=== PATIENT | female | born 1940 | race Caucasian/White ===

== ENCOUNTER 2019-02-25 16:28 | Inpatient (IN) | payer MEDICARE ==
[~2019-02-25] VITALS: Ht 162.6 cm; Wt 60.0 kg
--- NOTE | ~2019-02-25 | EKG ---
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
--- NOTE | ~2019-02-25 | EKG ---
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
--- NOTE | ~2019-02-25 | ST ---
[place], [place] EXERCISE STRESS TEST REPORT [id number] UN[facility] #: [id number] ROOM: 511 DOCTOR: POLLY JACKSON MD BIRTHDATE: [birth year] DOS: 02/27/2019 LEXISCAN STRESS EKG REFERRING PHYSICIAN: Dr. Neal. INDICATION: Abnormal EKG and palpitations. The patient underwent standard protocol Lexiscan stress EKG. Baseline rhythm is sinus bradycardia with a heart rate of 47 with a blood pressure 138/80. The patient's peak heart rate was 80 with a blood pressure 136/50. The patient had no EKG changes, no arrhythmias, no chest pain. SUMMARY OF FINDINGS: Unremarkable Lexiscan stress EKG. Please see separate report for perfusion scan imaging results. POLLY JACKSON MD CM:STRESS:EXERCISE STRESS TEST REPORT [id number] POLLY JACKSON MD
--- NOTE | ~2019-02-25 | EKG ---
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
[~2019-02-25 16:28] MED LIST: CIPROFLOXACIN500 MG PO; ZOFRAN4 MG PO
[2019-02-25 16:44] VITALS: BP 180/72
[2019-02-25 16:48] LABS: BASO # 0.1 10*3/uL (0.0-0.1); BASO % 0.5 % (0.0-1.0); EOS # 0.1 10*3/uL (0.0-0.4); EOS % 0.5 % (1.0-4.0); HEMOGLOBIN 12.8 g/dl (12.0-16.0); LYMPH # 2.5 10*3/uL (1.3-4.4); LYMPH % 21.4 % (27.0-41.0); MEAN CELL VOLUME 90.7 fl (81.0-99.0); MEAN CORPUSCULAR HGB 29.8 pg (27.0-31.0); MEAN CORPUSCULAR HGB CONC 32.8 g/dl (33.0-37.0); MEAN PLATELET VOLUME 10.3 fl (9.6-12.3); MONO # 0.6 10*3/uL (0.1-1.0); MONO % 5.2 % (3.0-9.0); NEUT # 8.4 10*3/uL (2.3-7.9); NEUT % 71.9 % (47.0-73.0); PLATELET COUNT AUTOMATED 218 10*3/uL (130-400); WHITE BLOOD COUNT 11.7 10*3/uL (4.8-10.8)
--- NOTE | 2019-02-25 16:58 | NUR ---
JAXON DRAKE SPOKE WITH INSIDE SALES RECRUITER WHO EVIEWED THE PTS EKG. THEY STATE THAT IT IS WORRISOME WITH THE ST DEPRESSION BUT THEY BELIEVE THAT THE PT COULD BE ADMITTED TO [facility]. JAXON DRAKE WILL LET THE INSIDE SALES RECRUITER KNOW IF THERE ARE ANY ABNORMAL FINDING ON THE REST OF THE PTS WORKUP.
[2019-02-25 17:01] LABS: ACT PARTIAL THROMBO TIME 24.5 SECONDS (20.0-32.1); INTERNATIONAL NORM RATIO 0.9 (2.0-3.5)
[2019-02-25 17:04] LABS: ALBUMIN 4.1 gm/dl (3.1-4.5); ALKALINE PHOSPHATASE 112 U/L (45-117); BUN 27 mg/dl (7-24); CHLORIDE 101 mmol/L (98-107); CREATININE 1.25 mg/dL (0.55-1.02); POTASSIUM 3.4 mmol/L (3.5-5.1); SGOT/AST 17 IU/L (3-35); SGPT/ALT 25 U/L (12-78); SODIUM 137 mmol/L (136-145)
[2019-02-25 17:07] LABS: TROPONIN I < 0.015 ng/ml (<0.045)
[2019-02-25 18:22] VITALS: BP 178/46
[2019-02-25 18:36] LABS: BILIRUBIN NEGATIVE (NEGATIVE); BLOOD TRACE-INTACT (NEGATIVE); CLARITY SL CLOUDY (CLEAR); COLOR YELLOW (YELLOW); GLUCOSE NEGATIVE (NEGATIVE); KETONE NEGATIVE (NEGATIVE); LEUKO ESTERASE 3+ (NEGATIVE); NITRITE POSITIVE (NEGATIVE); SPECIFIC GRAVITY <= 1.005 (1.005-1.030)
[2019-02-25 18:44] LABS: EPITHELIAL CELLS 0-2; RBC 0-2 rbc/hpf (0-2); WBC TNTC wbc/hpf (0-5)
[2019-02-25 18:45] LABS: BACTERIA 2+
--- NOTE | 2019-02-25 19:05 | NUR ---
NURSE TO NURSE REPORT GIVEN TO THIS RN FROM [facility].
[2019-02-25 20:37] VITALS: BP 158/59
[2019-02-25 20:50] VITALS: BP 166/58
--- NOTE | 2019-02-25 20:50 | NUR ---
A 78, admitted to 5E, under the services of AIME Madison DO with a diagnosis of UTI. Chief complaint is TACHYCARDIA. Patient arrived via bed from ER. Monitor applied. Initial assessment completed. Vital signs taken and recorded. AIME MADIOSN DO notified of admission to the unit. Orders received. See assessment for past medical history, medications and allergies. Patient and/or family oriented to unit. [address] visitation policy reviewed. Clothing/patient valuable form completed. NO WOUNDS ON ADMISSION. SKIN WDI. FLU VACCINE TO BE ADMINISTERED. CRISTY FERGUSON
[2019-02-25] MEDS ORDERED: LIPITOR80 MG PO (22:56)
[2019-02-25] MEDS ORDERED: TOPROL XL100 MG PO (22:56)
[2019-02-25] MEDS ORDERED: VITAMIN D400 UNI1 PO (22:58)
[2019-02-25] MEDS ORDERED: ASPIRIN ADULT L81 M1 PO (22:58)
[2019-02-25] MEDS ORDERED: FOSINOPRIL SODI20 MG PO (22:58)
[2019-02-25] MEDS ORDERED: LEVOTHYROXINE50 MCG PO (23:00)
--- NOTE | 2019-02-25 23:11 | NUR ---
DR MILLER NOTIFIED OF UPDATED MED REC.
[2019-02-26] VITALS: BP 159/51
--- NOTE | 2019-02-26 06:42 | NUR ---
SPOKE WITH KVNG FROM ANSWERING SERVICE. NEW PT CONSULT FOR DR ESPAÑA MADE.
[2019-02-26 06:44] LABS: BASO # 0.1 10*3/uL (0.0-0.1); BASO % 0.8 % (0.0-1.0); EOS # 0.1 10*3/uL (0.0-0.4); HEMATOCRIT 34.7 % (37.0-47.0); HEMOGLOBIN 11.2 g/dl (12.0-16.0); LYMPH # 1.9 10*3/uL (1.3-4.4); MEAN CORPUSCULAR HGB 29.7 pg (27.0-31.0); MEAN CORPUSCULAR HGB CONC 32.3 g/dl (33.0-37.0); MEAN PLATELET VOLUME 10.8 fl (9.6-12.3); MONO # 0.5 10*3/uL (0.1-1.0); MONO % 7.4 % (3.0-9.0); NEUT # 4.7 10*3/uL (2.3-7.9); NEUT % 64.4 % (47.0-73.0); PLATELET COUNT AUTOMATED 191 10*3/uL (130-400); RED BLOOD COUNT 3.77 10*6/uL (4.10-5.10); RED CELL DISTRI WIDTH 13.2 % (0-14.5); WHITE BLOOD COUNT 7.3 10*3/uL (4.8-10.8)
[2019-02-26 07:17] LABS: INTERNATIONAL NORM RATIO 0.9 (2.0-3.5)
[2019-02-26 07:20] LABS: ALBUMIN 3.4 gm/dl (3.1-4.5); BUN 24 mg/dl (7-24); CHLORIDE 110 mmol/L (98-107); SODIUM 141 mmol/L (136-145); TRIGLYCERIDES 265 mg/dl (<150); VLDL CHOLESTEROL 53 mg/dL (6-40)
[2019-02-26 07:26] LABS: ALKALINE PHOSPHATASE 89 U/L (45-117); CHOLESTEROL 165 mg/dL (<200); CREATININE 0.98 mg/dL (0.55-1.02); HDL CHOLESTEROL 50 mg/dl (40-60); LDL CHOLESTEROL 62 mg/dL (9-159); PHOSPHOROUS 3.5 mg/dL (2.5-4.9); SGOT/AST 10 IU/L (3-35); SGPT/ALT 19 U/L (12-78); TOTAL PROTEIN 6.6 gm/dL (6.4-8.2)
[2019-02-26 07:30] LABS: POTASSIUM 4.5 mmol/L (3.5-5.1)
--- NOTE | 2019-02-26 07:33 | NUR ---
24 HR chart check completed.
[2019-02-26 08:00] VITALS: BP 149/50; BP 158/60
[2019-02-26 08:13] LABS: VITAMIN D, 25-HYDROXY 24.5 ng/mL (30-100)
--- NOTE | 2019-02-26 08:30 | NUR ---
SITTING IN BED EATING, NO ACUTE DISTRESS NOTED. RESPIRATIONS EASY. LUNGS DIMINISHED, CLEAR. PULSE OX 96% RA. C/O URINARY FREQUENCY. OFFERED AND EDUCATED REGARDING TEDS, PRESENT AT BEDSIDE. CALL LIGHT WITHIN REACH. NO VOICED COMPLAINTS
--- NOTE | 2019-02-26 08:35 | NUR ---
DR HURT HERE TO ASSESS PATIENT AND DISCUSS PLAN OF CARE
--- NOTE | 2019-02-26 09:10 | NUR ---
dr marti here to see patient and discuss of care
[2019-02-26] MEDS ORDERED: METOPROLOL TAR100 M1 PO (09:48)
[2019-02-26 12:00] VITALS: BP 129/65
--- NOTE | 2019-02-26 12:00 | NUR ---
SITTING IN BED TALKING ON PHONE. NO DISTRESS NOTED. CALL LIGHT WITHIN REACH. NO VOICED COMPLAINTS
[2019-02-26 16:00] VITALS: BP 117/75
--- NOTE | 2019-02-26 18:00 | NUR ---
RESTING IN BED WITH NO DISTRESS NOTED. RESPIRATIONS EASY. CALL LIGHT WITHIN REACH. NO VOICED COMPLAINTS
[2019-02-26 20:00] VITALS: BP 147/54
--- NOTE | 2019-02-26 20:00 | NUR ---
24 HOUR CHART CHECK COMPLETE.
[2019-02-27] VITALS: BP 143/52
[2019-02-27 07:00] LABS: ALBUMIN 3.6 gm/dl (3.1-4.5); ALKALINE PHOSPHATASE 85 U/L (45-117); BUN 23 mg/dl (7-24); CHLORIDE 106 mmol/L (98-107); CREATININE 0.94 mg/dL (0.55-1.02); POTASSIUM 5.1 mmol/L (3.5-5.1); SGOT/AST 13 IU/L (3-35); SGPT/ALT 20 U/L (12-78); SODIUM 142 mmol/L (136-145); TOTAL PROTEIN 6.9 gm/dL (6.4-8.2)
[2019-02-27 07:11] LABS: BASO # 0.1 10*3/uL (0.0-0.1); BASO % 1.2 % (0.0-1.0); EOS # 0.2 10*3/uL (0.0-0.4); EOS % 2.1 % (1.0-4.0); HEMATOCRIT 36.9 % (37.0-47.0); HEMOGLOBIN 11.8 g/dl (12.0-16.0); LYMPH # 2.4 10*3/uL (1.3-4.4); LYMPH % 30.7 % (27.0-41.0); MEAN CELL VOLUME 92.5 fl (81.0-99.0); MEAN CORPUSCULAR HGB 29.6 pg (27.0-31.0); MEAN PLATELET VOLUME 10.2 fl (9.6-12.3); MONO # 0.6 10*3/uL (0.1-1.0); MONO % 7.8 % (3.0-9.0); NEUT # 4.5 10*3/uL (2.3-7.9); NEUT % 57.7 % (47.0-73.0); PLATELET COUNT AUTOMATED 204 10*3/uL (130-400); RED BLOOD COUNT 3.99 10*6/uL (4.10-5.10); RED CELL DISTRI WIDTH 13.2 % (0-14.5); WHITE BLOOD COUNT 7.8 10*3/uL (4.8-10.8)
[2019-02-27 08:00] VITALS: BP 105/77; BP 140/60
--- NOTE | 2019-02-27 08:59 | NUR ---
PRIMARY SPECIAL EDUCATION TEACHER spoke with the patient when having the patient sign her Medicare Rights form. Patient stated that she does have a good support system at home. However, she feels that her is getting to a point where he cannot take care of her horse race timer. The patient reported that she has two daugthers who help her when she calls them and grandsons who help with the outside yard work. She stated that she is interested in Home Health Nurses and Visiting Physicicans. The patient stated "If it wasn't for the EMS team, I wouldn't have left the house." Patient stated she does not like to leave her home anymore. NANCY provided the patient with brochures on [facility] and [facility]. NANCY will inform Calender Worker Helper. -NANCY Gonzáles
[2019-02-27 12:00] VITALS: BP 160/63
--- NOTE | 2019-02-27 12:17 | NUR ---
INFORMED SIGNED CONSENT OBTAINED FOR LEXISCAN STRESS TEST WITH DR JACKSON. RESTING EKG SINUS BRADYCARDIA INVERTED T WAVE -V2 AVL/AVR. HR 47 BP 138/80. PULSE OX 92% LUNGS CLEAR. PT COMPLETED ONE MINUTE OF A LEXISCAN PROTOCOL WITH PT RECEIVING LEXISCAN 0.4MG IV OVER 10 SECONDS. PAC'S NOTED. NO ST CHANGES SEEN. PT C/O OF ANXIETY AND RINGING IN HIS EARS. LAST RECOVERY HR OF 77 BP 120/66. PT IN STABLE CONDITION, AWAITING NUCLEAR IMAGES.
--- NOTE | 2019-02-27 14:20 | NUR ---
Matrix Repairer in to talk to patient. Patient states lives at HOME with ALONE. There are NO steps in the home. Physician: DAWNA Pharmacy: [facility] health services: NONE Patient's level of ADLs: INDEPENDENT Patient has working utilities: YES DME: NONE Follow-up physician's appointment after d/c: WILL BE MADE BY HOSPITALIST NURSE DIRECTOR ON DISCHARGE Does patient want to access PORTAL?: NO Discharge plan PT LIVES ALONE AT HOME, STATES SHE IS INDEPENDENT IN HER CARE.. PT DENIES ANY NEEDS AT DISCHARGE. STATES SHE WILL RETURN HOME WHEN MEDICALLY STABLE. WILL CONTINUE TO FOLLOW. PT WILL HAVE A RIDE HOME ON DISCHARGE. JOSE MONTES
--- NOTE | 2019-02-27 16:00 | NUR ---
Discharge instructions reviewed with patient/family. Patient receptive and verbalizes understanding. Follow-up care arranged. Written instructions given to patient/family. RIKI BENTLEY
== END 2019-02-27 16:00 | disposition home or self-care (01) | DRG 308 ==
LOC: ED 16:28 → EDHOLD 19:14 → 5E 19:14
PROVIDERS: Emergency Medicine; Student in an Organized Health Care Education/Training Program; ADMIT Internal Medicine
PROC: 3E073KZ Introduction of Other Diagnostic Substance into Coronary Artery, Percutaneous Approach (ICD-10-PCS; principal; 2019-02-27)
PROC: 4A02XM4 Measurement of Cardiac Total Activity, External Approach (ICD-10-PCS; principal; 2019-02-27)
DX: R00.2 Palpitations (principal); N17.0 Acute kidney failure with tubular necrosis; N39.0 Urinary tract infection, site not specified; E87.6 Hypokalemia; R00.0 Tachycardia, unspecified; E78.5 Hyperlipidemia, unspecified; E03.9 Hypothyroidism, unspecified; I10 Essential (primary) hypertension; E11.65 Type 2 diabetes mellitus with hyperglycemia; D64.9 Anemia, unspecified; B96.89 Other specified bacterial agents as the cause of diseases classified elsewhere; E87.8 Other disorders of electrolyte and fluid balance, not elsewhere classified; E55.9 Vitamin D deficiency, unspecified; Z90.49 Acquired absence of other specified parts of digestive tract; Z98.51 Tubal ligation status; Z82.49 Family history of ischemic heart disease and other diseases of the circulatory system; Z82.0 Family history of epilepsy and other diseases of the nervous system; Z79.82 Long term (current) use of aspirin; Z79.899 Other long term (current) drug therapy; Z79.890 Hormone replacement therapy

== ENCOUNTER → 2020-04-08 | Outpatient (CLI) | payer MEDICARE ==
[~2020-04-08] MED LIST changes: +ASPIRIN ADULT L81 M1 PO; +FOSINOPRIL SODI20 MG PO; +LEVOTHYROXINE50 MCG PO; +LIPITOR80 MG PO; +METOPROLOL TAR100 M1 PO; +TOPROL XL100 MG PO; +VITAMIN D400 UNI1 PO
== END | disposition home or self-care (01) ==
LOC: COVID19 14:49
PROVIDERS: ATTEND Family Medicine
DX: Z20.828 Contact with and (suspected) exposure to other viral communicable diseases (principal)

== ENCOUNTER → 2021-04-10 | Outpatient (CLI) | payer MEDICARE | END | disposition home or self-care (01) | LOC: COVID19 16:01 | PROVIDERS: ATTEND Internal Medicine | DX: U07.1 COVID-19 (principal) ==

== ENCOUNTER → 2024-03-22 | Outpatient (CLI) | payer MEDICARE ==
[~2024-03-22] MED LIST changes: +AMOX-CLAV 875-1 EACH PO; +ESCITALOPRAM OXA5 MG PO; +FOSINOPRIL SODI10 MG PO; +GLIPIZIDE2.5 MG PO
== END | disposition home or self-care (01) ==
LOC: ORTHO 03:30
PROVIDERS: ATTEND Orthopaedic Surgery
DX: M25.562 Pain in left knee (principal)